=== PATIENT | female | born 1960 | race Caucasian/White ===

== ENCOUNTER 2018-01-30 02:18 | Emergency (ER) | payer BC, OTHER ==
[~2018-01-30] VITALS: Ht 162.5 cm; Wt 87.5 kg
[2018-01-30] MEDS ORDERED: PREDNISONE20 M1 PO (03:56)
[2018-01-30] MEDS ORDERED: ATARAX,VISTARIL50 MG PO (03:56)
== END 2018-01-30 04:37 | disposition home or self-care (01) ==
LOC: ED 02:18
DX: L23.81 Allergic contact dermatitis due to animal (cat) (dog) dander (principal); Z88.8 Allergy status to other drugs, medicaments and biological substances

== ENCOUNTER 2025-04-23 20:58 | Emergency (ER) | payer BC, OTHER ==
[~2025-04-23] VITALS: Ht 160 cm; Wt 65.3 kg
[~2025-04-23 20:58] MED LIST: ATARAX,VISTARIL50 MG PO; PREDNISONE20 M1 PO
== END 2025-04-23 23:12 | disposition left against medical advice (07) ==
LOC: ED 20:58
DX: R11.2 Nausea with vomiting, unspecified (principal); Z53.21 Procedure and treatment not carried out due to patient leaving prior to being seen by health care provider